=== PATIENT | female | born 1960 | race African-American/Black ===

== ENCOUNTER → 2017-04-01 | Outpatient (CLI) | payer OTHER ==
--- NOTE | 2017-04-01 15:40 | KCIC ---
INDICATION: Neck pain and stiffness for one week. TECHNIQUE: Cervical spine series contains 5 images. No comparison is available. FINDINGS: Prominent anterior osteophytes are noted at C4-C5, C5-C6 and C6-C7. Mild facet hypertrophy is noted throughout the cervical spine. There is no fracture or dislocation. Prevertebral soft tissues are within normal limits. There is no narrowing of the osseous neural foramina. There is no widening of the atlantodental interval. IMPRESSION: Mild degenerative changes in the cervical spine. No narrowing of the osseous neuroforamina. Electronically signed by: Alessandro Bhagat MD (04/01/2017 3:37 PM) [id number]
== END | disposition home or self-care (01) ==
LOC: KCIC 08:27
PROVIDERS: ATTEND Family Medicine
DX: M47.892 Other spondylosis, cervical region (principal); G58.8 Other specified mononeuropathies
CPT/HCPCS: 72050

== ENCOUNTER 2021-07-29 18:35 | Emergency (ER) | payer SELFPAY ==
[~2021-07-29] VITALS: Ht 175.3 cm; Wt 111.4 kg
[2021-07-29 19:19] VITALS: BP 128/93
--- NOTE | 2021-07-30 00:01 | RAD ---
CT HEAD AND C-SPINE WO Date: 07/29/2021 11:23 PM Clinical Indication: Reason: fall pain / Spl. Instructions: / History: Comparison: None. Technique: 5 mm axial tomographic images were obtained of the head without contrast. These were view ed on brain and bone windows. Noncontrast CT of the cervical spine was performed. One or more of the following dose reduction techniques were utilized: Automated exposure control (AEC), Adjustment of mA and/or kV according to patient size, Use of iterative reconstruction technique such as ASiR, CT scan done according to ALARA and image gently/image wisely HEAD FINDINGS: Mild generalized cerebral and cerebellar volume loss. Mild nonspecific periventricular hypoattenuatio n, most commonly seen with chronic small vessel ischemic disease. No intra- or extra-axial mass or fluid collection. No acute hemorrhage. The ventricles are normal in size, shape, and morphology. The herman-white matter junction is normal. The basilar cisterns are paten t. The visualized paranasal sinuses are normal. The visualized portions of the orbits and globes are no rmal. The mastoid air cells are clear. No aggressive osseous lesion or fracture. CERVICAL SPINE FINDINGS: Evaluation of the facial bones and cervical spine is degraded secondary to p atient motion. No displaced fractures. Vertebral body heights are preserved. Mild multilevel degenerative disc space height loss. Multilevel mild spinal canal stenosis secondary to disc protrusions and marginal osteop hytes. Multilevel mild to moderate neuroforaminal narrowing secondary to uncovertebral arthrosis. Mul tilevel mild to moderate facet arthrosis. The thyroid gland is normal. No cervical lymphadenopathy. Bilateral carotid atherosclerosis. The visu alized aerodigestive tract is normal. Centrilobular and paraseptal emphysematous changes. No evidence of acute abnormality in the visualize d lung apices. IMPRESSION: 1. No acute intracranial process. 2. No evidence of posttraumatic displaced osseous injury of the cervical spine. Electronically signed by: Sabas Jauregui DO (07/29/2021 11:59 PM) [facility]
--- NOTE | 2021-07-30 00:11 | RAD ---
Two-view right shoulder dated 07/29/2021. COMPARISON: None. CLINICAL INDICATION: Pain after fall. FINDINGS: 2 views right shoulder show normal bony alignment. No displaced fracture. No periostitis or bone dest ruction. Mild hypertrophic change of the AC joint. No acute osseous or articular abnormality. IMPRESSION: 1. No acute radiographic abnormality. 2. Mild degenerative changes. Electronically signed by: Chad Ramsey MD (07/30/2021 12:09 AM) JUAN[facility]
--- NOTE | 2021-07-30 00:33 | PHYS DOC ---
Past Medical History Past Surgical History: No Surgical History Smoking Status: Former Smoker Alcohol Use: None General Adult EDM: Chief Complaint: BACK INJURY HPI: HPI: Patient is a 60 year old female patient who presents to the ED today to be evaluated for fall she had early this morning. She states she was walking at her apartment parking lot when she slipped on ice and fell landing on her buttocks, she states she hit her head on the ground. She is complaining of 4 out of 10 posterior head pain, neck pain, right shoulder pain, mid and low back pain. Patient denies any loss of consciousness, denies being on any blood thinners. Denies anything specifically exacerbating or relieving her pain. Denies being on any blood thinners. Review of Systems: Review of Systems: Constitutional: Denies fever or chills. [] Eyes: Denies change in visual acuity. [] HENT: Denies nasal congestion or sore throat. [] Respiratory: Denies cough or shortness of breath. [] Cardiovascular: Denies chest pain or edema. [] GI: Denies abdominal pain, nausea, vomiting, bloody stools or diarrhea. [] : Denies dysuria. [] Musculoskeletal: Reports falling, neck pain, mid and low back pain, right shoulder pain Integument: Denies rash. [] Neurologic: Reports head pain, denies focal weakness or sensory changes. [] ] Psychiatric: Denies depression or anxiety. [] Heart Score: C/O Chest Pain: N/A Risk Factors: Risk Factors: DM, Current or recent (<one month) smoker, HTN, HLP, family history of CAD, obesity. Risk Scores: Score 0 - 3: 2.5% MACE over next 6 weeks - Discharge Home Score 4 - 6: 20.3% MACE over next 6 weeks - Admit for Clinical Observation Score 7 - 10: 72.7% MACE over next 6 weeks - Early Invasive Strategies Physical Exam: PE: Constitutional: Well developed, well nourished, no acute distress, non-toxic appearance. [] HENT: Normocephalic, bilateral external ears normal, oropharynx moist, no oral exudates, nose normal. [] Eyes: PERRLA, EOMI, conjunctiva normal, no discharge. [] Neck: Normal range of motion, diffuse paraspinal muscle tenderness to bilateral posterior cervical spine, slight midline cervical spine tenderness, supple, no stridor. [] Cardiovascular:Heart rate regular rhythm Lungs & Thorax: Bilateral breath sounds clear to auscultation [] Abdomen: Bowel sounds normal, soft, no tenderness, no masses, no pulsatile masses. [] Skin: Warm, dry, no erythema, no rash. [] Back: Diffuse paraspinal muscle tenderness to thoracic and lumbar spine, no midline thoracic or lumbar spine tenderness, no CVA tenderness. [] Extremities: No tenderness, no cyanosis, no clubbing, ROM intact, no edema. [] Neurologic: Alert and oriented X 3, normal motor function, normal sensory function, no focal deficits noted. Cranial nerves II through XII intact Psychologic: Affect normal, judgement normal, mood normal. [] Current Patient Data: Vital Signs: Vital Signs Date Time Temp Pulse Resp B/P (MAP) Pulse Ox O2 Delivery O2 Flow Rate FiO2 07/29/21 19:19 98.2 94 16 128/93 (105) 98 Room Air 98.2 EKG: EKG: [] Radiology/Procedures: Radiology/Procedures: []PROCEDURE: SHOULDER 2+V RIGHT Two-view right shoulder dated 07/29/2021. COMPARISON: None. CLINICAL INDICATION: Pain after fall. FINDINGS: 2 views right shoulder show normal bony alignment. No displaced fracture. No periostitis or bone destruction. Mild hypertrophic change of the AC joint. No acute osseous or articular abnormality. IMPRESSION: 1. No acute radiographic abnormality. 2. Mild degenerative changes. Electronically signed by: Chad Ramsey MD (07/30/2021 12:09 AM) [facility] DICTATED and SIGNED BY: CHAD RAMSEY MD DATE: 07/30/21 [id number] PROCEDURE: CT HEAD AND CERVICAL SPINE WO CT HEAD AND C-SPINE WO Date: 07/29/2021 11:23 PM Clinical Indication: Reason: fall pain / Spl. Instructions: / History: Comparison: None. Technique: 5 mm axial tomographic images were obtained of the head without contrast. These were viewed on brain and bone windows. Noncontrast CT of the cervical spine was performed. One or more of the following dose reduction techniques were utilized: Automated exposure control (AEC), Adjustment of mA and/or kV according to patient size, Use of iterative reconstruction technique such as ASiR, CT scan done according to ALARA and image gently/image wisely HEAD FINDINGS: Mild generalized cerebral and cerebellar volume loss. Mild nonspecific periventricular hypoattenuation, most commonly seen with chronic small vessel ischemic disease. No intra- or extra-axial mass or fluid collection. No acute hemorrhage. The ventricles are normal in size, shape, and morphology. The herman-white matter junction is normal. The basilar cisterns are patent. The visualized paranasal sinuses are normal. The visualized portions of the o rbits and globes are normal. The mastoid air cells are clear. No aggressive osseous lesion or fracture. CERVICAL SPINE FINDINGS: Evaluation of the facial bones and cervical spine is degraded secondary to patient motion. No displaced fractures. Vertebral body heights are preserved. Mild multilevel degenerative disc space height loss. Multilevel mild spinal canal stenosis secondary to disc protrusions and marginal osteophytes. Multilevel mild to moderate neuroforaminal narrowing secondary to uncovertebral arthrosis. Multilevel mild to moderate facet arthrosis. The thyroid gland is normal. No cervical lymphadenopathy. Bilateral carotid atherosclerosis. The visualized aerodigestive tract is normal. Centrilobular and paraseptal emphysematous changes. No evidence of acute abnormality in the visualized lung apices. IMPRESSION: 1. No acute intracranial process. 2. No evidence of posttraumatic displaced osseous injury of the cervical spine. Electronically signed by: Ruy Jauregui DO (07/29/2021 11:59 PM) [facility] DICTATED and SIGNED BY: RUY JAUREGUI DO DATE: 07/29/21 [id number] 0 Course & Med Decision Making: Course & Med Decision Making Pertinent Labs and Imaging studies reviewed. (See chart for details) This is a 60-year-old female patient presenting to the ED today to be evaluated after falling this morning. Complaining of head pain, neck pain, mid and low back pain, right shoulder pain. CT of the head, cervical spine, thoracic, lumbar spine and right shoulder x-rays were ordered Patient refused CT of the thoracic and lumbar spine. CT of the head and cervical spine are negative. Right shoulder x-rays are negative. Discharge to home. f/u with PCP in one week BP is 128/93, patient states she has her blood pressure medicines at home and will take them when she gets home Dragon Disclaimer: Wandy Disclaimer: This electronic medical record was generated, in whole or in part, using a voice recognition dictation system. Departure Departure Impression: Primary Impression: Fall from standing Qualified Codes: W19.XXXA - Unspecified fall, initial encounter Additional Impressions: Closed head injury Qualified Codes: S09.90XA - Unspecified injury of head, initial encounter Lumbar contusion Qualified Codes: S30.0XXA - Contusion of lower back and pelvis, initial encounter Acute cervical sprain Qualified Codes: S13.9XXA - Sprain of joints and ligaments of unspecified parts of neck, initial encounter Contusion of right shoulder Qualified Codes: S40.011A - Contusion of right shoulder, initial encounter Disposition: HOME / SELF CARE / HOMELESS Condition: STABLE Referrals: CRISTIAN WATERMAN MD (PCP) follow up in one week Patient Instructions: Contusion, [id number], Fall Prevention and Home Safety, Head Injury, Adult, [id number] Additional Instructions: You were evaluated in the emergency room. Your CT of the head, neck are negative for any acute findings, your right shoulder x-rays are negative for any acute findings. Continue taking your muscle relaxer at home. You can also take Tylenol as needed for pain. Follow-up with your doctor in 1 week VLAD GAMEZ APRN Jul 30, 2021 00:33
== END 2021-07-30 01:25 | disposition home or self-care (01) ==
LOC: ER 18:35
DX: S13.4XXA Sprain of ligaments of cervical spine, initial encounter (principal); S40.011A Contusion of right shoulder, initial encounter; S30.0XXA Contusion of lower back and pelvis, initial encounter; S09.90XA Unspecified injury of head, initial encounter; W00.0XXA Fall on same level due to ice and snow, initial encounter; Y93.01 Activity, walking, marching and hiking; Y92.89 Other specified places as the place of occurrence of the external cause; Y99.8 Other external cause status
CPT/HCPCS: 70450; 72125; 73030; 99284